=== PATIENT | female | born 1935 | race Caucasian/White ===

== ENCOUNTER 2016-12-18 15:39 | Emergency (ER) | payer OTHER, MEDICARE ==
[~2016-12-18] VITALS: Ht 162.6 cm; Wt 87.3 kg
[~2016-12-18 15:39] MED LIST: CIPRO500 MG PO; FLAGYL500 MG PO; LEVEMIR FL100 UNIT/1 SC; LEVEMIR FL100 UNITS/; LEVOTHYROXINE75 MCG; NAPROSYN250 MG PO; NOVOLOG PE100 UNITS/; NOVOLOG PE100 UNITS/ SC; OMEPRAZOLE40 M1 PO; TYLENOL WITH C1 EACH PO; ULTRAM50 MG PO; VALSARTAN-HCTZ1 EAC2
[2016-12-18 16:08] LABS: HEMATOCRIT 45.8 % (36.0-46.0); MCH 29.9 PG (29.0-34.0); MCHC 33.4 G/DL (30.0-36.0); MCV 89.6 FL (83-99); MEAN PLAT.VOLUME 9.8 uM^3 (9.5-12.4); PLATELET COUNT 189 K/uL (156-360); RBC DIS.WIDTH-CV 12.8 % (11.8-14.6); RBC DIS.WIDTH-SD 42.1 % (39-53); RED BLOOD COUNT 5.11 M/uL (3.80-5.20); WHITE BLOOD COUNT 5.2 K/uL (4.1-10.2)
[2016-12-18 16:17] LABS: CHLORIDE 102 mEq/L (99-109); POTASSIUM 3.7 mEq/L (3.7-5.4); SODIUM 142 mEq/L (136-147)
[2016-12-18 16:20] LABS: GLUCOSE 103 mg/dL (70-99)
[2016-12-18 16:21] LABS: ANION GAP 11 MEQ/L (2-14); TOTAL BILIRUBIN 0.5 mg/dL (0.0-1.0)
[2016-12-18 16:23] LABS: ALKALINE PHOSPHATASE 60 IU/L (3-129); GFR ESTIMATE (CALCULATED) > 59 mL/min/
[2016-12-18 16:24] LABS: UREA NITROGEN (BUN) 16 mg/dL (9-23)
[2016-12-18 20:36] VITALS: BP 168/72
== END 2016-12-18 20:37 | disposition home or self-care (01) ==
LOC: EME 15:39
PROVIDERS: Physician Assistant
DX: R60.0 Localized edema (principal); E11.9 Type 2 diabetes mellitus without complications; Z96.652 Presence of left artificial knee joint; I10 Essential (primary) hypertension; Z87.442 Personal history of urinary calculi; Z79.4 Long term (current) use of insulin
CPT/HCPCS: 71020; 80053; 83880; 85027; 93970; 99281; 99283